=== PATIENT | female | born 1985 | race Caucasian/White ===

== ENCOUNTER 2020-11-15 10:47 | Emergency (ER) | payer MEDICAID ==
[~2020-11-15] VITALS: Ht 180.3 cm; Wt 63.5 kg
[2020-11-15] MEDS ORDERED: NEURONTIN300 MG PO (11:48)
[2020-11-15] MEDS ORDERED: ETODOLAC400 M2 PO (11:48)
[2020-11-15 11:50] LABS: BILIRUBIN Negative (Negative); BLOOD Negative (Negative); CLARITY Cloudy (Clear); COLOR Yellow (Yellow); GLUCOSE Negative (Negative); KETONE 2+ (Negative); LEUKO ESTERASE Negative (Negative); NITRITE Negative (Negative); PH 5.5 (4.5-8.0); SPECIFIC GRAVITY >= 1.030 (1.001-1.030)
[2020-11-15 11:58] LABS: URINE AMPHETAMINES > 1000 (1000ng/ml); URINE BARBITURATES < 200 (200ng/ml); URINE BENZODIAZEPINES > 200 (200ng/ml); URINE CANNABINOIDS (THC) > 50 (50ng/ml); URINE COCAINE < 300 (300ng/ml); URINE METHADONE < 300 (300ng/ml); URINE OPIATES < 300 (300ng/ml)
[2020-11-15 12:05] LABS: URINE PHENCYCLIDINE < 25 (25ng/ml)
[2020-11-15 12:11] LABS: BACTERIA TRACE; EPITHELIAL CELLS 16-20
[2020-11-15 12:38] LABS: BASO # 0.1 10*3/uL (0.0-0.1); BASO % 0.8 % (0.0-1.0); EOS # 0.1 10*3/uL (0.0-0.4); EOS % 0.6 % (1.0-4.0); HEMATOCRIT 39.4 % (37.0-47.0); LYMPH # 3.1 10*3/uL (1.3-4.4); LYMPH % 33.8 % (27.0-41.0); MEAN CELL VOLUME 95.2 fl (81.0-99.0); MEAN CORPUSCULAR HGB 32.1 pg (27.0-31.0); MEAN CORPUSCULAR HGB CONC 33.8 g/dl (33.0-37.0); MEAN PLATELET VOLUME 9.1 fl (9.6-12.3); MONO # 0.4 10*3/uL (0.1-1.0); MONO % 4.7 % (3.0-9.0); NEUT # 5.6 10*3/uL (2.3-7.9); NEUT % 59.9 % (47.0-73.0); PLATELET COUNT AUTOMATED 334 10*3/uL (130-400); RED BLOOD COUNT 4.14 10*6/uL (4.10-5.10); RED CELL DISTRI WIDTH 13.7 % (0-14.5); WHITE BLOOD COUNT 9.3 10*3/uL (4.8-10.8)
[2020-11-15 13:16] LABS: ACETAMINOPHEN (TYLENOL) 8.8 ug/ml (10-30); ALBUMIN 4.1 gm/dl (3.1-4.5); ALKALINE PHOSPHATASE 60 U/L (45-117); BUN 20 mg/dl (7-24); CHLORIDE 110 mmol/L (98-107); CPK 97 U/L (26-192); CREATININE 0.91 mg/dL (0.55-1.02); POTASSIUM 3.6 mmol/L (3.5-5.1); SGOT/AST 12 IU/L (3-35); SGPT/ALT 17 U/L (12-78); SODIUM 143 mmol/L (136-145)
== END 2020-11-15 14:53 | disposition home or self-care (01) ==
LOC: ED 10:47
PROVIDERS: Family Medicine; Physician Assistant
DX: F43.22 Adjustment disorder with anxiety (principal); F17.200 Nicotine dependence, unspecified, uncomplicated; Z88.8 Allergy status to other drugs, medicaments and biological substances; Z79.899 Other long term (current) drug therapy; Z20.822 Contact with and (suspected) exposure to COVID-19

== ENCOUNTER 2023-04-23 15:27 | Emergency (ER) | payer MEDICAID ==
[~2023-04-23] VITALS: Ht 180.3 cm; Wt 63.5 kg
[~2023-04-23 15:27] MED LIST: ETODOLAC400 M2 PO; NEURONTIN300 MG PO
[2023-04-23] MEDS ORDERED: SEPTDS PO (19:36)
== END 2023-04-23 21:32 | disposition home or self-care (01) ==
LOC: ED 15:27
DX: L02.511 Cutaneous abscess of right hand (principal); Z88.8 Allergy status to other drugs, medicaments and biological substances

== ENCOUNTER 2024-05-02 10:19 | Emergency (ER) | payer OTHER ==
[~2024-05-02] VITALS: Ht 180.3 cm; Wt 52.2 kg
[~2024-05-02 10:19] MED LIST changes: +SEPTDS PO
[2024-05-02] MEDS ORDERED: SODIUM CHLORIDE 0.9% 1,000 ML IV ONE (12:10)
[2024-05-02] MEDS ORDERED: Ondansetron Hydrochloride 4 MG TAB PO ONE (12:35)
[2024-05-02 12:41] LABS: BASO # 0.1 10*3/uL (0.0-0.1); BASO % 0.9 % (0.0-1.0); EOS # 0.1 10*3/uL (0.0-0.4); EOS % 0.6 % (1.0-4.0); HEMATOCRIT 46.2 % (37.0-47.0); LYMPH # 2.6 10*3/uL (1.3-4.4); LYMPH % 25.4 % (27.0-41.0); MEAN CELL VOLUME 100.7 fl (81.0-99.0); MEAN CORPUSCULAR HGB 33.6 pg (27.0-31.0); MEAN CORPUSCULAR HGB CONC 33.3 g/dl (33.0-37.0); MEAN PLATELET VOLUME 9.6 fl (9.6-12.3); MONO # 0.5 10*3/uL (0.1-1.0); NEUT # 6.8 10*3/uL (2.3-7.9); NEUT % 67.8 % (47.0-73.0); PLATELET COUNT AUTOMATED 308 10*3/uL (130-400); RED BLOOD COUNT 4.59 10*6/uL (4.10-5.10); RED CELL DISTRI WIDTH 13.1 % (0-14.5)
[2024-05-02 12:46] LABS: BILIRUBIN 2+ (Negative); BLOOD 3+ (Negative); CLARITY Turbid (Clear); COLOR Red (Yellow); GLUCOSE Negative (Negative); KETONE Negative (Negative); LEUKO ESTERASE 2+ (Negative); NITRITE Positive (Negative); SPECIFIC GRAVITY >= 1.030 (1.001-1.030)
[2024-05-02 12:48] LABS: BACTERIA 4+; RBC TNTC rbc/hpf (0-2)
[2024-05-02 12:58] LABS: ALKALINE PHOSPHATASE 80 U/L (46-116); BUN 9 mg/dl (9-23); CHLORIDE 108 mmol/L (98-107); POTASSIUM 3.9 mmol/L (3.4-5.1); SGPT/ALT 11 U/L (5-49); TOTAL PROTEIN 7.5 gm/dL (6.0-8.0)
[2024-05-02 13:00] LABS: BETA-HCG, QUANT < 3.0 mIU/mL (3-10)
[2024-05-02] MEDS ORDERED: MACROBID100 M1 PO (13:18)
[2024-05-02] MEDS ORDERED: Ondansetron4 MG PO (13:19)
== END 2024-05-02 13:26 | disposition home or self-care (01) ==
LOC: ED 10:19
PROVIDERS: Nurse Practitioner Family
DX: N39.0 Urinary tract infection, site not specified (principal); R11.2 Nausea with vomiting, unspecified; Z88.8 Allergy status to other drugs, medicaments and biological substances

== ENCOUNTER 2025-03-01 16:21 | Emergency (ER) | payer OTHER ==
[~2025-03-01] VITALS: Wt 77.1 kg
[~2025-03-01 16:21] MED LIST changes: +MACROBID100 M1 PO; +Ondansetron4 MG PO
[2025-03-01] MEDS ORDERED: CEPHALEXIN 500 MG CAP PO ONE (17:15)
[2025-03-01] MEDS ORDERED: DERMABOND 1 EA APPL T ONE (17:26)
[2025-03-01] MEDS ORDERED: CEPHALEXIN500 M1 PO (18:48)
== END 2025-03-01 17:08 | disposition home or self-care (01) ==
LOC: ED 16:21
DX: S61.012A Laceration without foreign body of left thumb without damage to nail, initial encounter (principal); Z79.899 Other long term (current) drug therapy; Z88.8 Allergy status to other drugs, medicaments and biological substances; W26.9XXA Contact with unspecified sharp object(s), initial encounter; Y93.89 Activity, other specified; Y92.89 Other specified places as the place of occurrence of the external cause; Y99.8 Other external cause status